=== PATIENT | male | born 1935 | race Asian ===

== ENCOUNTER 2019-01-07 17:15 | Emergency (ER) | payer OTHER ==
[~2019-01-07] VITALS: Ht 165.1 cm; Wt 80.1 kg
[2019-01-07 17:17] VITALS: BP 164/84
[2019-01-07] MEDS ORDERED: TRANEXAMIC ACID 100 MG/ML, 10ML TP ONE (18:00)
[2019-01-07 18:36] LABS: INTERNATIONAL NORMALIZED RATIO 0.98 (0.93-1.1); PROTHROMBIN TIME 10.3 Seconds (9.6-11.5)
[2019-01-07] MEDS ORDERED: TRANEXAMIC ACID 100 MG/ML, 10ML ONE (18:41)
== END 2019-01-07 19:29 | disposition home or self-care (01) ==
LOC: ED 19:00
DX: S90.812A Abrasion, left foot, initial encounter (principal); X58.XXXA Exposure to other specified factors, initial encounter; Y93.89 Activity, other specified; Y92.89 Other specified places as the place of occurrence of the external cause; Y99.8 Other external cause status
CPT/HCPCS: 36415; 85610; 99283